=== PATIENT | male | born 1945 | race Caucasian/White ===

== ENCOUNTER 2021-05-05 16:01 | Outpatient (REF) | payer MEDICARE, SELFPAY ==
--- NOTE | ~2021-05-05 | CT_ITS ---
EXAMINATION: CT SHOULDER WITHOUT CONTRAST, LEFT CLINICAL INFORMATION: Cervical radiculopathy. Left shoulder pain. COMPARISON: None TECHNIQUE: Contiguous axial CT images of the left shoulder were obtained without contrast. Multiplanar reformats were provided and reviewed. This CT examination was performed using dose optimization techniques as appropriate, variously including the following: *Automated exposure control. *Adjustment of mA and/or kV according to patient size (this includes techniques or standardized protocols for targeted exams where dose is matched to indication/reason for exam; i.e. extremities or head). *Use of iterative reconstruction technique. DOSE: 353 mGycm. FINDINGS: No acute fracture or dislocation. The humeral head is well seated within the glenoid. No significant glenohumeral or acromioclavicular joint space narrowing or marginal osteophytes. No osseous erosion. Partially visualized degenerative disc disease and left-sided neural foraminal stenosis within the cervical spine, better evaluated on the concurrent C-spine CT. No concerning lytic or blastic osseous lesion. The rotator cuff tendons are grossly intact, however, evaluation is significantly limited on CT imaging. No abnormal soft tissue mass or fluid collection. The visualized left lung is clear. CT/CT shoulder LT wo con IMPRESSION: No acute osseous abnormality. No glenohumeral or acromioclavicular osteoarthritis. Partially visualized cervical spine degenerative disc disease and left-sided neural foraminal stenosis, better evaluated on the concurrent cervical spine CT.
--- NOTE | ~2021-05-05 | CT_ITS ---
EXAMINATION: CT CERVICAL SPINE WITHOUT CONTRAST CLINICAL INFORMATION: 75-year-old with cervical radiculopathy and shoulder pain. COMPARISON: None TECHNIQUE: Volumetric CT imaging of the cervical spine was done with multiplanar reformatted reconstructions. This CT examination was performed using dose optimization techniques as appropriate, variously including the following: *Automated exposure control *Adjustment of mA and/or kV according to patient size (this includes techniques or standardized protocols for targeted exams where dose is matched to indication/reason for exam; i.e. extremities or head) *Use of iterative reconstruction technique DLP: 492.00 mGy-cm FINDINGS: There is mild lordotic reversal centered at C4-C5 with 2 mm of anterolisthesis at C3-C4. There are bony productive changes at the anterior atlantodental joint. The occipitoatlantal joints and C1-C2 articulations are intact and aligned. There is mild chronic loss of height along the superior endplate of C6 anteriorly. Otherwise, the vertebral body heights are well maintained. There is severe disc space height loss at C5-C6 and C6-C7 with multiple small Schmorl's nodes, degenerative endplate sclerosis and mild anterior marginal spondylosis. There is moderate disc space height loss at C4-C5 with minor spondylosis and Schmorl's nodes. Mild disc space height loss noted at C2-C3 and C3-C4 also noted.. Spinal levels: C2-C3: Tiny central disc protrusion noted without significant canal compromise. Kmhq-dp-xclshlyk bilateral facet arthropathy noted with a Schmorl's node along the superior endplate of C3. No significant canal or neural foraminal stenosis. C3-C4: Unroofing of the posterior disc margin consistent with mild spondylolisthesis. Slight flattening of the dural sac related to this. Uncinate process hypertrophic change noted on the left with mild left-sided and jxzvlczj-[id number]-wwawmt right-sided facet arthropathy and mild right-sided neural foraminal narrowing without canal stenosis. C4-C5: Broad-based posterior disc-osteophyte complex noted, with flattening of the dural sac without cord impingement. There is uncovertebral spurring, left more than right, with [id number] bilateral facet hypertrophic degenerative change. Moderate right-sided and [id number]-[id number]-lqfyqs left-sided neural foraminal stenosis without significant spinal canal stenosis. C5-C6: Broad-based posterior disc-osteophyte complex noted, with effacement of the ventral dural sac, with mild central spinal canal stenosis. Bilateral uncovertebral spurring is noted with moderate bilateral facet hypertrophic degenerative change, with cgrufoli-pd-hcszir bilateral neural foraminal stenosis, right more than left. C6-C7: Broad-based posterior disc-osteophyte complex is noted with bilateral uncovertebral spurring and jktx-ae-jvpzqqcf bilateral facet arthropathy with mild bilateral neural foraminal stenosis. Soft tissues in the canal are partially obscured by artifact from the shoulders at this level. Cannot exclude disc herniation and/or cord impingement at this level, but there is no significant bony canal stenosis. C7-T1: Uncinate process hypertrophy noted bilaterally with moderate bilateral facet arthrosis without significant bony canal stenosis. Mild bony neural foraminal stenosis noted on the left. Soft tissues in the canal are partially obscured by artifact from the shoulders at this level. Cannot exclude disc herniation and/or cord impingement at this level. The T1-T2 and T2-T3 levels demonstrate no significant bony canal stenosis. There is eqmj-sj-dazaarnq bilateral facet arthropathy at these levels with predominately mnwt-pq-psekebtf degrees of neural foraminal stenosis, left more than right. There is costovertebral arthrosis at both levels bilaterally. Soft tissues within the canal are partially obscured. CT/CT cervical spine wo con IMPRESSION: 1. There is mild lordotic reversal centered at C4-C5 with mild anterolisthesis at C3-C4. 2. Multilevel DDD and spondylosis, most significant at C5-C6 and C6-C7, as detailed above. There is multilevel bilateral uncovertebral and facet arthropathy throughout the cervical and upper thoracic spine. 3. Mild central spinal canal stenosis at C5-C6. Multilevel bilateral neural foraminal stenosis, as detailed above, most significant at C5-C6 and C4-C5. 4. Some limitations, as detailed above, for evaluating the spinal canal. 5. Some degree of regressive remodeling of the mandibular condyles is noted bilaterally, left more than right.
== END 2021-05-05 16:02 | disposition home or self-care (01) ==
LOC: HO.CT 16:01
PROVIDERS: Visit Provider Internal Medicine Hematology & Oncology
DX: M25.512 Pain in left shoulder (principal); M54.12 Radiculopathy, cervical region
CPT/HCPCS: 72125; 73200